=== PATIENT | male | born 2000 | race Caucasian/White ===

== ENCOUNTER 2019-05-06 17:57 | Emergency (ER) | payer OTHER ==
[~2019-05-06] VITALS: Ht 188 cm; Wt 100.0 kg
--- NOTE | 2019-05-06 19:05 | REP ---
HISTORY: Trauma. TECHNIQUE: 4.5 mm contiguous transaxial sections were obtained from the skull base to the cerebral convexities with thin cuts through the posterior fossa without the administration of intravenous contrast. FINDINGS: The ventricles and sulci are consistent with the patient's age. There are no extra-axial fluid collections. There is no mass effect. The deep cerebral white matter is consistent with the patient's age. The orbital and petrous structures , cerebellopontine angles, and posterior fossa are unremarkable. The sella turcica, cavernous, and paracavernous structures are essentially unremarkable. The visualized portions of the paranasal sinuses and mastoid air cells are clear. Images of the skull base show no gross abnormality. IMPRESSION: Essentially unremarkable CT examination of the brain. Electronically Signed by Kwaku Sheets DO 05/06/2019 07:11 P
--- NOTE | 2019-05-06 19:06 | REP ---
HISTORY: Pain in the neck. COMPARISON: None. Vertebral body height and alignment is within normal limits. The disc spaces are symmetric and well maintained. The facet joints are well aligned bilaterally. There is no evidence of a fracture. There is no abnormal paraspinal soft tissue swelling. IMPRESSION: Normal exam. Electronically Signed by Kwaku Sheets DO 05/06/2019 07:11 P
[2019-05-06] MEDS ORDERED: IBUP-1022 PO (21:40)
[2019-05-06] MEDS ORDERED: ZOFR4TAB16 PO (21:40)
[2019-05-06] MEDS ORDERED: IBUPROFEN 600 MG TAB PO ONE (21:45)
[2019-05-06] MEDS ORDERED: ONDANSETRON 4 MG ORAL DISINTEGRATING TAB (Q0162 PER 1MG) PO ONE (21:45)
[2019-05-06 21:48] VITALS: BP 136/74
== END 2019-05-06 21:49 | disposition home or self-care (01) ==
LOC: M ED 17:57
DX: S06.0X0A Concussion without loss of consciousness, initial encounter (principal); S16.1XXA Strain of muscle, fascia and tendon at neck level, initial encounter; V47.5XXA Car driver injured in collision with fixed or stationary object in traffic accident, initial encounter; Y92.410 Unspecified street and highway as the place of occurrence of the external cause
CPT/HCPCS: 70450; 72125; 99284; Q0162